=== PATIENT | female | born 1995 | race Asian ===

== ENCOUNTER 2021-12-09 21:50 | Emergency (ER) | payer OTHER ==
[~2021-12-09] VITALS: Ht 152.4 cm; Wt 48.5 kg
[2021-12-09] MEDS ORDERED: KETOROLAC TROMETHAMINE 30 MG/ML VIAL IV STA (22:47)
[2021-12-09] MEDS ORDERED: FAMOTIDINE 20 MG/2 ML VIAL IV STA (22:47)
[2021-12-09] MEDS ORDERED: ONDANSETRON HCL INJ 2MG/ML 2ML 2 MG/ML VIAL IV STA (22:47)
[2021-12-09] MEDS ORDERED: SODIUM CHLORIDE 0.9% 1000ML 1,000 ML IV SCH (23:00)
[2021-12-09] MEDS ORDERED: IOPAMIDOL 370 MG/ML 100 ML INFUS..BTL INJ ONE (23:27)
[2021-12-09] MEDS ORDERED: ONDANSETRON HCL INJ 2MG/ML 2ML 2 MG/ML VIAL ONE (23:29)
[2021-12-09] MEDS ORDERED: SODIUM CHLORIDE 0.9% 1000ML 1,000 ML ONE (23:29)
[2021-12-09] MEDS ORDERED: KETOROLAC TROMETHAMINE 30 MG/ML VIAL ONE (23:29)
[2021-12-09] MEDS ORDERED: FAMOTIDINE 20 MG/2 ML VIAL IV ONE (23:29)
[2021-12-10 01:02] VITALS: BP 113/75
== END 2021-12-10 01:09 | disposition home or self-care (01) ==
LOC: FSED 22:20
DX: R10.13 Epigastric pain (principal); K80.50 Calculus of bile duct without cholangitis or cholecystitis without obstruction; R11.2 Nausea with vomiting, unspecified
CPT/HCPCS: 74177; 80048; 80076; 81003; 81025; 85025; 96374; 96375; 96376; 99283; J1885; J2405; J7030; Q9967

== ENCOUNTER 2024-04-25 19:20 | Emergency (ER) | payer OTHER ==
[~2024-04-25] VITALS: Ht 162.6 cm; Wt 60.3 kg
[2024-04-25 19:30] VITALS: PULSE 111; RESP 18; TEMP 97
[2024-04-25 20:10] VITALS: BP 120/66; PULSE 111; RESP 18; TEMP 97; O2SAT 98
== END 2024-04-25 20:10 | disposition home or self-care (01) ==
LOC: FSED 19:41
DX: O26.893 Other specified pregnancy related conditions, third trimester (principal); R50.9 Fever, unspecified; B34.9 Viral infection, unspecified
CPT/HCPCS: 0223U; 83518; 87400; 99282